=== PATIENT | female | born 1945 | race Hispanic/Latino ===

== ENCOUNTER 2016-07-12 11:29 | Emergency (ER) | payer BC, MEDICARE ==
[2016-07-12 11:36] VITALS: BMI 36.2
[2016-07-12 11:44] VITALS: RESP 18; TEMP 98.7; O2SAT 96
[2016-07-12] MEDS ORDERED: HYDROmorphone 1 mg/ml ISec IVP STA (12:22)
[2016-07-12] MEDS ORDERED: Sodium Chloride 0.9% 1,000 ML IV STA (12:23)
--- NOTE | 2016-07-12 12:57 | ED PDOC ---
Arrival/HPI - General Chief Complaint: Back Pain Time Seen by Provider: 07/12/16 12:08 Historian: Patient - History of Present Illness Narrative History of Present Illness (Text): 07/12/16 12:10 Meli Manley is a 71 year old female, whose past medical history asthma/COPD, AAA repair, methodone dependent (Previous drug use), and kidney stones, who presents to the emergency department complaining of left upper back pain for five days. Patient states that her pain that is radiating toward left shoulder. She notes that her pain is worse with certain movement. Patient has taken Advil multiple times with no relief. Patient does recall lifting heavy things shortly prior to pain onset. Patient denies any chest pain, shortness of breath, nausea , vomiting, urinary symptoms, or any other complaint at this time. PMD: Dr. Raya Time/Duration: < week Symptom Onset: Gradual Symptom Course: Unchanged Severity Level: Mild Activities at Onset: Rest Context: Home Past Medical History - Provider Review Nursing Documentation Reviewed: Yes - Infectious Disease Hx of Infectious Diseases: None - Reproductive Menopause: Yes - Cardiac Hx Pacemaker: No - Pulmonary Hx Respiratory Disorders: Yes (SMOKES CIGARETTES DOWN TO ONE CIG/DAY USED TO SMOKE 1 PPD) Hx Asthma: Yes Hx Bronchitis: Yes - Neurological Hx Paralysis: No - Renal Hx Renal Disorder: Yes Hx Kidney Stones: Yes (MULTIPLE LITHOTRYPSY) - Hematological/Oncological Hx Blood Transfusions: No Hx Blood Transfusion Reaction: No - Musculoskeletal/Rheumatological Hx Musculoskeletal Disorders: Yes (CARPAL TUNNEL WITH BILATERAL SX) - Gastrointestinal Hx Gastrointestinal Disorders: Yes Hx Gastroesophageal Reflux: Yes - Psychiatric Hx Emotional Abuse: No Hx Physical Abuse: No Hx Substance Use: Yes (PAST HEROIN USE 1973;ON METHADONE PROGRAM) - Surgical History Hx Abdominal Aortic Aneurysm Repair: Yes Hx Cholecystectomy: Yes Other/Comment: kidney stones removed - Anesthesia Hx Anesthesia: Yes Hx Anesthesia Reactions: No Hx Malignant Hyperthermia: No - Suicidal Assessment Feels Threatened In Home Enviroment: No Family/Social History - Physician Review Nursing Documentation Reviewed: Yes Family/Social History: No Known Family HX Smoking Status: Current Some Days Smoker Hx Alcohol Use: Yes Frequency of alcohol use: Socially Hx Substance Use: Yes (PAST HEROIN USE 1973;ON METHADONE PROGRAM) Allergies/Home Meds Allergies/Adverse Reactions: Allergies erythromycin base Allergy (Verified 07/12/16 11:37) RASH Penicillins Allergy (Verified 07/12/16 11:37) SHORTNESS OF BREATH Home Medications: Home Meds Medication Instructions Recorded Confirmed Budesonide/Formoterol Fumarate 1 - 2 puff IH BID 11/25/13 07/31/14 [Symbicort 80-4.5 Mcg Inhaler] Esomeprazole Magnesium [Nexium] 40 mg PO DAILY 11/25/13 07/31/14 Hydrochlorothiazide [HCTZ] 25 mg PO DAILY 11/25/13 07/31/14 Methadone 80 mg PO QAM 11/25/13 07/31/14 Potassium Chloride [K-Dur 10] 10 meq PO DAILY 11/25/13 07/31/14 Aspirin [Ecotrin] 81 mg PO DAILY 07/12/16 07/12/16 Cilostazol [Pletal] 100 mg PO BID 07/12/16 07/12/16 Review of Systems - Review of Systems Constitutional: absent: Fevers, Night Sweats Eyes: absent: Vision Changes ENT: absent: Hearing Changes Respiratory: absent: SOB, Cough Cardiovascular: absent: Chest Pain Gastrointestinal: absent: Abdominal Pain Genitourinary Female: absent: Urine Output Changes Musculoskeletal: Back Pain (Left Upper Back pain). absent: Neck Pain Skin: absent: Rash Neurological: absent: Headache, Dizziness Endocrine: absent: Polyuria Hemo/Lymphatic: absent: Easy Bleeding Psychiatric: absent: Depression Physical Exam Vital Signs Reviewed: Yes Vital Signs Temp Pulse Resp BP Pulse Ox 07/12/16 14:21 69 18 133/68 96 07/12/16 12:33 75 18 135/71 96 07/12/16 11:43 98.7 F 79 18 138/77 96 Temperature: Afebrile Blood Pressure: Normal Pulse: Regular Respiratory Rate: Normal Appearance: Positive for: Non-Toxic, Uncomfortable (due to pain) Pain Distress: Moderate Mental Status: Positive for: Alert and Oriented X 3 - Systems Exam Head: Present: Atraumatic, Normocephalic Pupils: Present: PERRL Conjunctiva: Present: Normal Mouth: Present: Moist Mucous Membranes Pharnyx: Present: Normal. No: ERYTHEMA, EXUDATE Neck: Present: Normal Range of Motion Respiratory/Chest: Present: Clear to Auscultation, Good Air Exchange. No: Respiratory Distress, Accessory Muscle Use Cardiovascular: Present: Regular Rate and Rhythm, Normal S1, S2. No: Murmurs Abdomen: Present: Normal Bowel Sounds. No: Tenderness, Distention, Peritoneal Signs Back: Present: Normal Inspection, Other (Tenderness to palpation to trapezius region of left upper back w/reproducible pain.). No: Midline Tenderness Upper Extremity: Present: Normal Inspection, Normal ROM. No: Cyanosis, Edema Lower Extremity: Present: Normal Inspection. No: Edema Neurological: Present: GCS=15, CN II-XII Intact, Speech Normal Skin: Present: Warm, Dry, Normal Color. No: Rashes Psychiatric: Present: Alert, Oriented x 3, Normal Insight, Normal Concentration Medical Decision Making ED Course and Treatment: 07/12/16 12:10 Impression: 71 year old female complaining of left upper back pain for five days. Differential Diagnosis include but are not limited to: musculoskeletal pain vs. kidney stone vs. aortic dissection/AAA leak vs. pneumonia Plan: -- EKG -- Abdomen and pelvis CT w/o Contrast -- Angiography Disection CT -- Urine Culture, Urinalysis -- Labs -- Valium, Dilaudid, Toradol, and IV Fluids -- Reassess and disposition Progress Notes: EKG: Ordered, reviewed, and independently interpreted the EKG. Rate : 82 BPM Rhythm : NSR Interpretation : Short [place] interval at 104. Normal [employer]. Comparison : No new ST-T changes compared with 11/25/13 07/12/16 14:[address]: Creator : Miller Muro MD FINDINGS: LOWER THORAX:Minimal dependent lower lobe atelectasis, right greater than left. Minimal focal atelectasis/pleural thickening in the lingula, unchanged. LIVER:Unremarkable. No gross lesion or ductal dilatation. GALLBLADDER AND BILE DUCTS:Gallbladder not visualized. PANCREAS:Unremarkable. No gross lesion or ductal dilatation. SPLEEN:Unremarkable. ADRENALS:Stable 3.3 cm low-density ovoid left adrenal mass. This measures 1 Hounsfield units consistent with adrenal adenoma. No right adrenal mass. KIDNEYS AND URETERS: 1.8 cm low-density left upper pole renal mass. This measures 6 Hounsfield units and is consistent with cysts. It has enlarged slightly since the prior examination. 1.5 cm mid left renal cortical mass. This measures 9 Hounsfield units and is consistent with a cyst. It has enlarged slightly since the prior examination. There is a nonobstructing 9 mm right upper pole renal calculus. There is a punctate 1-2 mm nonobstructing left upper pole renal calculus. Previously, there was a left upper pole renal calculus. This is no longer identified. There is no hydronephrosis. There is no hydroureter or ureteral calculus. VASCULATURE:There is an infrarenal abdominal aortic aneurysm which has been treated with an aorto bi-iliac stent graft. The aneurysm measures approximately 5.2 cm anterior-posterior and approximately 6.8 cm in length. The aneurysm has increased in A-P dimension since the prior examination, from 5 cm to 6.8 cm. BOWEL:No abnormal bowel loops identified. No bowel obstruction. APPENDIX:Normal appendix not positively identified. No secondary findings to suggest acute appendicitis. PERITONEUM:No ascites. No pneumoperitoneum. Umbilical hernia containing only mesenteric fat. LYMPH NODES:Unremarkable. No enlarged lymph nodes. BLADDER:Unremarkable. REPRODUCTIVE:Unremarkable uterus. BONES:No acute fracture. Grade 1 anterolisthesis at L5-S1. Bilateral L5 spondylolysis. OTHER FINDINGS:None. IMPRESSION: Interval enlargement of infrarenal abdominal aortic aneurysm with aorto bi- iliac stent graft. No evidence of ureteral calculus. Nonobstructing right upper pole renal calculus. 1-2 mm nonobstructing left upper pole renal calculus. Additional minor findings as above. Two left renal cysts, slightly increased in size from prior CT examination. Recommend nonemergent correlation with renal ultrasound examination because of this increase in size. ADDENDUM: Addendum dictation: Please note that there was an error dictated under the section titled : vasculature". The corrected dictation is as follows: VASCULATURE: There is an infrarenal abdominal aortic aneurysm which has been treated with an aorto bi-iliac stent graft. The aneurysm measures approximately 5.2 cm anterior approximately 6.8 cm in length. The aneurysm has increased in A-P dimension, since the prior examination, from 5 cm to 5.2 cm. [ Addendum Report Added by Miller Muro MD at 07/12/2016 14:55:14 ] 07/12/16 15:[address]: Creator : Miller Muro MD FINDINGS: CT ANGIOGRAPHY OF THE CHEST WITH & WITHOUT CONTRAST: AORTA (CHEST AND ABDOMEN): There is no evidence of thoracic or abdominal aortic dissection. There is aneurysmal dilatation of the infrarenal abdominal aorta with an aortobiiliac stent graft. The maximum a-PA diameter of the aneurysm is approximately 5.2 cm. Previously, this measured approximately 5.0 cm. There is no evidence of endoleak. 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 There is no definite stenosis at the origin of the superior mesenteric artery. . The pelvic arteries are unremarkable. LUNGS: Centrilobular pulmonary emphysema. Dependent ground-glass opacity at right lung base, likely dependent atelectasis. No pulmonary infiltrate. MEDIASTINUM: Unremarkable. Normal caliber aorta and pulmonary arterial trunk. No aortic dissection. Normal size heart. LYMPH NODES: Unremarkable. PLEURA: Unremarkable. No pneumothorax. No pleural fluid. BONES: Unremarkable OTHER FINDINGS: None. CT ANGIOGRAPHY OF THE ABDOMEN AND PELVIS WITH CONTRAST: LIVER: Unremarkable. No gross lesion or ductal dilatation. GALLBLADDER AND BILE DUCTS: Gallbladder not visualized. Question is raised as to prior cholecystectomy. No surgical clips identified in gallbladder fossa. PANCREAS: Unremarkable. No gross lesion or ductal dilatation. SPLEEN: Unremarkable. ADRENALS: 3.1 cm ovoid low-attenuation left adrenal mass. Consistent with adrenal adenoma. Please see report of earlier noncontrast abdominal CT examination of the same date. KIDNEYS AND URETERS: 1.9 cm left upper pole renal cortical cyst. 1.5 cm mid right renal cortical cyst. Please note that no was made on earlier noncontrast examination of some interval increase in size of these cysts. As measured from postcontrast examination, there has been no interval change in the size of these cysts from prior examination. 9 mm nonobstructing right upper pole renal calculus. No hydronephrosis. VASCULATURE: See above STOMACH AND BOWEL: Unremarkable. No obstruction. No gross mural thickening. APPENDIX: Normal appendix not positively identified. PERITONEUM: No ascites. Small umbilical hernia containing only mesenteric fat. LYMPH NODES: Unremarkable. No enlarged lymph nodes. BLADDER: Unremarkable. REPRODUCTIVE: Normal uterus. BONES: No acute fracture. Grade 1 anterolisthesis at L5-S1 with bilateral spondylolysis of L5. OTHER FINDINGS: None. IMPRESSION: Small increase in diameter of a previously documented infrarenal abdominal aortic aneurysm, status post aortobiiliac stent graft. No evidence of endoleak. No evidence of thoracic or abdominal aortic dissection. 9 mm nonobstructing right upper pole renal calculus. Additional minor findings as above. 07/12/16 15:44 Patient with noted history. Imaging with showing AAA at 5.2 cm with aorto-bi- iliac stent in place with no leak. Instructed to follow up with Dr. Miller Gilmore , who did the initial procedure 3 years ago. Also noted are renal stones with which she will follow up Dr. Stevenson. She was also told about the renal cysts and adrenal adenoma on imaging. She will follow up with Dr. Raya for that. Patient feels significant improvement of pain after meds here in the emergency depart Patient's TECHNOLOGY SUPPORT ANALYST was checked and has not received any controlled substance scripts in system - will prescribe percocet, naprosyn, and muscle relaxant. 07/12/16 15:55 Case also discussed with Dr. Gilmore, who will follow up the patient outpatient. Case also dicussed with Dr. Raya; will give fewer tabs of percocet, given drug history. - Lab Interpretations Lab Results: 07/12/16 13:00 07/12/16 13:20 Lab Results 07/12/16 13:20: Sodium 137, Potassium 3.9, Chloride 101, Carbon Dioxide 30, Anion Gap 10, BUN 11, Creatinine 0.6, Est GFR ( Amer) > 60, Est GFR (Non- Af Amer) > 60, Random Glucose 89, Calcium 8.8, Magnesium 1.8, Total Bilirubin 0.3, AST 20, ALT 31, Alkaline Phosphatase 74, Lactate Dehydrogenase 432, Total Creatine Kinase 87, Troponin I < 0.01, Total Protein 6.7, Albumin 3.5, Globulin 3.1, Albumin/Globulin Ratio 1.1, Lipase 40 07/12/16 13:00: PT 10.2, INR 0.94, APTT 26.6 07/12/16 13:00: Urine Color Yellow, Urine Appearance Clear, Urine pH 6.0, Ur Specific [place] 1.010, Urine Protein Negative, Urine Glucose (UA) Negative, Urine Ketones Trace H, Urine Blood Negative, Urine Nitrate Negative, Urine Bilirubin Negative, Urine Urobilinogen 0.2, Ur Leukocyte Esterase Negative 07/12/16 13:00: WBC 8.5, RBC 5.17, Hgb 14.3, Hct 43.8, MCV 84.7, MCH 27.7, MCHC 32.6, RDW 17.0 H, Plt Count 314, MPV 9.2, Gran % 60.9, Lymph % (Auto) 26.4, Mathews % (Auto) 9.9 H, Eos % (Auto) 2.3, Baso % (Auto) 0.5, Gran # 5.19, Lymph # 2.3, Mathews # 0.8 H, Eos # 0.2, Baso # 0.04 I have reviewed the lab results: Yes - RAD Interpretation Radiology Orders: 07/12/16 12:20 ABD & PELVIS W/O PO OR IV CONT [CT] Stat ANGIOGRAPHY DISECTION PROTOCOL [CT] Stat - Medication Orders Current Medication Orders: Discontinued Medications Diazepam (Valium) 2.5 mg PO ONCE STA Stop: 07/12/16 12:22 Last Admin: 07/12/16 13:06 Dose: 2.5 mg Hydromorphone HCl (Dilaudid) 1 mg IVP STAT STA Stop: 07/12/16 12:23 Last Admin: 07/12/16 13:05 Dose: 1 mg Sodium Chloride (Sodium Chloride 0.9%) 1,000 mls @ 999 mls/hr IV .Q1H1M STA Stop: 07/12/16 13:23 Last Admin: 07/12/16 13:06 Dose: 999 mls/hr Iohexol (Omnipaque 350 150 Ml) Confirm Administered Dose 150 ml .ROUTE .STK-MED ONE Stop: 07/12/16 13:53 Ketorolac Tromethamine (Toradol) 30 mg IVP STAT STA Stop: 07/12/16 12:21 Last Admin: 07/12/16 13:05 Dose: 30 mg - Scribe Statement The provider has reviewed the documentation as recorded by the Temitope Maciel Provider Scribe Attestation: All medical record entries made by the Scriblaury were at my direction and personally dictated by me. I have reviewed the chart and agree that the record accurately reflects my personal performance of the history, physical exam, medical decision making, and the department course for this patient. I have also personally directed, reviewed, and agree with the discharge instructions and disposition. Disposition/Present on Arrival - Present on Arrival Any Indicators Present on Arrival: No History of DVT/PE: No History of Uncontrolled Diabetes: No Urinary Catheter: No History of Decub. Ulcer: No History Surgical Site Infection Following: None - Disposition Have Diagnosis and Disposition been Completed?: Yes Diagnosis: Left-sided back pain, Adrenal adenoma, AAA (abdominal aortic aneurysm), Kidney stone, Kidney cysts Disposition: HOME/ ROUTINE Disposition Time: 15:50 Patient Plan: Discharge Condition: GOOD Discharge Instructions (ExitCare): Back Pain (ED), Kidney Stones (ED), Kidney Cyst (ED) Additional Instructions: Take the medications as prescribed. Do not use additional nsaids (advil, motrin ) while takign the naproxen. No heavy lifting. Make sure you follow up with Dr. Miller Gilmore and Dr. Stevenson and Dr. Raya. Return to the emergency department if any new concerning symptoms. Prescriptions: Baclofen [Lioresal] 1 cap PO TID PRN #20 tab PRN Reason: Pain, Moderate (4-7) Naproxen [Naprosyn] 500 mg PO BID PRN #30 tab PRN Reason: Pain oxyCODONE/Acetaminophen [Percocet 5/325 mg Tab] 1 tab PO Q6H PRN #6 tab PRN Reason: Pain, Severe (8-10) Referrals: Catrachito Raya MD [Primary Care Provider] - Follow up with primary Miller Gilmore MD [Staff Provider] - Follow up with primary Pineda Stevenson MD [Staff Provider] - Follow up with primary
[2016-07-12 13:09] LABS: ADD MANUAL DIFF? NO
[2016-07-12 13:11] LABS: BASO # 0.04 K/mm3 (0.0-2.0); BASO % 0.5 % (0.0-3.0); EOS # 0.2 (0.0-0.7); EOS % 2.3 % (1.5-5.0); GRAN # 5.19 (1.4-6.5); GRAN % 60.9 % (50.0-68.0); HEMATOCRIT 43.8 % (36.0-48.0); LYMPH # 2.3 (1.2-3.4); LYMPH % 26.4 % (22.0-35.0); MEAN CELL VOLUME 84.7 fL (80.0-105.0); MEAN CORPUSCULAR HEMOGLOBIN 27.7 pg (25.0-35.0); MEAN CORPUSCULAR HGB CONC 32.6 g/dl (31.0-37.0); MEAN PLATELET VOLUME 9.2 fl (7.0-11.0); MONO # 0.8 (0.1-0.6); MONO % 9.9 % (1.0-6.0); PLATELET COUNT 314 10^3/uL (120.0-450.0); URINE APPEARANCE CLEAR (CLEAR); URINE BILIRUBIN NEGATIVE (NEGATIVE); URINE BLOOD NEGATIVE (NEGATIVE); URINE COLOR YELLOW (YELLOW); URINE GLUCOSE (UA) NEGATIVE (NEGATIVE); URINE KETONE TRACE mg/dL (NEGATIVE); URINE LEUKOCYTE ESTERASE NEGATIVE Leu/uL (NEGATIVE); URINE PROTEIN NEGATIVE mg/dL (<30 mg/dL); URINE UROBILINOGEN 0.2 E.U./dL (<1 E.U./dL); WHITE BLOOD COUNT 8.5 10^3/ul (4.5-11.0)
[2016-07-12 13:28] LABS: INR 0.94 (0.93-1.08); PARTIAL THROMBOPLASTIN TIME 26.6 Seconds (23.7-30.8)
[2016-07-12 13:44] LABS: ALB/GLOB RATIO 1.1 (1.1-1.8); ALKALINE PHOSPHATASE 74 U/L (38-133); ALT/SGPT 31 U/L (7-56); AST/SGOT 20 U/L (15-39); BILIRUBIN,TOTAL 0.3 mg/dL (0.2-1.3); BLOOD UREA NITROGEN 11 mg/dL (7-21); CALCIUM 8.8 mg/dL (8.4-10.5); CARBON DIOXIDE 30 mmol/L (21-33); CHLORIDE 101 mmol/L (95-110); GFR AFRICAN-AMERICAN > 60; GLUCOSE,RANDOM 89 mg/dL (70-110); LIPASE 40 U/L (23-300); MAGNESIUM 1.8 mg/dL (1.7-2.2); POTASSIUM 3.9 mmol/L (3.6-5.0); SODIUM 137 mmol/L (132-148); TOTAL PROTEIN 6.7 g/dL (5.8-8.3)
[2016-07-12 14:18] LABS: TROPONIN I < 0.01 ng/mL
[2016-07-12 14:21] VITALS: BP 133/68; PULSE 69
--- NOTE | 2016-07-12 14:42 | CT ---
PROCEDURE: CT Abdomen and Pelvis without intravenous contrast HISTORY: L side back pain - r/o renal colic COMPARISON: 07/18/2014 TECHNIQUE: Without contrast.. Contrast Dose: 0 Radiation dose: Total exam DLP = 1153.55 mGy-cm. This CT exam was performed using one or more of the following dose reduction techniques: Automated exposure control, adjustment of the mA and/or kV according to patient size, and/or use of iterative reconstruction technique. FINDINGS: LOWER THORAX: Minimal dependent lower lobe atelectasis, right greater than left. Minimal focal atelectasis/pleural thickening in the lingula, unchanged. LIVER: Unremarkable. No gross lesion or ductal dilatation. GALLBLADDER AND BILE DUCTS: Gallbladder not visualized. PANCREAS: Unremarkable. No gross lesion or ductal dilatation. SPLEEN: Unremarkable. ADRENALS: Stable 3.3 cm low-density ovoid left adrenal mass. This measures 1 Hounsfield units consistent with adrenal adenoma. No right adrenal mass. KIDNEYS AND URETERS: 1.8 cm low-density left upper pole renal mass. This measures 6 Hounsfield units and is consistent with cysts. It has enlarged slightly since the prior examination. 1.5 cm mid left renal cortical mass. This measures 9 Hounsfield units and is consistent with a cyst. It has enlarged slightly since the prior examination. There is a nonobstructing 9 mm right upper pole renal calculus. There is a punctate 1-2 mm nonobstructing left upper pole renal calculus. Previously, there was a left upper pole renal calculus. This is no longer identified. There is no hydronephrosis. There is no hydroureter or ureteral calculus. VASCULATURE: There is an infrarenal abdominal aortic aneurysm which has been treated with an aorto bi-iliac stent graft. The aneurysm measures approximately 5.2 cm anterior-posterior and approximately 6.8 cm in length. The aneurysm has increased in A-P dimension since the prior examination, from 5 cm to 6.8 cm. BOWEL: No abnormal bowel loops identified. No bowel obstruction. APPENDIX: Normal appendix not positively identified. No secondary findings to suggest acute appendicitis. PERITONEUM: No ascites. No pneumoperitoneum. Umbilical hernia containing only mesenteric fat. LYMPH NODES: Unremarkable. No enlarged lymph nodes. BLADDER: Unremarkable. REPRODUCTIVE: Unremarkable uterus. BONES: No acute fracture. Grade 1 anterolisthesis at L5-S1. Bilateral L5 spondylolysis. OTHER FINDINGS: None. IMPRESSION: Interval enlargement of infrarenal abdominal aortic aneurysm with aorto bi-iliac stent graft. No evidence of ureteral calculus. Nonobstructing right upper pole renal calculus. 1-2 mm nonobstructing left upper pole renal calculus. Additional minor findings as above. Two left renal cysts, slightly increased in size from prior CT examination. Recommend nonemergent correlation with renal ultrasound examination because of this increase in size.
--- NOTE | 2016-07-12 15:11 | CT ---
PROCEDURE: CT Angiography Chest, Abdomen and Pelvis with and without intravenous contrast HISTORY: L side back pain - r/o dissection COMPARISON: None. TECHNIQUE: Contiguous axial images of the chest, abdomen and pelvis were obtained in the phase of aortic enhancement. A noncontrast enhanced CT of the chest was also obtained to evaluate for possible intramural thrombus. Coronal and sagittal reformats were generated. IV dose administered: 150 mL Omnipaque 350 Radiation dose: Total exam DLP = 1523.38 mGy-cm. This CT exam was performed using one or more of the following dose reduction techniques: Automated exposure control, adjustment of the mA and/or kV according to patient size, and/or use of iterative reconstruction technique. FINDINGS: CT ANGIOGRAPHY OF THE CHEST WITH & WITHOUT CONTRAST: AORTA (CHEST AND ABDOMEN): There is no evidence of thoracic or abdominal aortic dissection. There is aneurysmal dilatation of the infrarenal abdominal aorta with an aortobiiliac stent graft. The maximum a-PA diameter of the aneurysm is approximately 5.2 cm. Previously, this measured approximately 5.0 cm. There is no evidence of endoleak. 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 There is no definite stenosis at the origin of the superior mesenteric artery. . The pelvic arteries are unremarkable. LUNGS: Centrilobular pulmonary emphysema. Dependent ground-glass opacity at right lung base, likely dependent atelectasis. No pulmonary infiltrate. MEDIASTINUM: Unremarkable. Normal caliber aorta and pulmonary arterial trunk. No aortic dissection. Normal size heart. LYMPH NODES: Unremarkable. PLEURA: Unremarkable. No pneumothorax. No pleural fluid. BONES: Unremarkable OTHER FINDINGS: None. CT ANGIOGRAPHY OF THE ABDOMEN AND PELVIS WITH CONTRAST: LIVER: Unremarkable. No gross lesion or ductal dilatation. GALLBLADDER AND BILE DUCTS: Gallbladder not visualized. Question is raised as to prior cholecystectomy. No surgical clips identified in gallbladder fossa. PANCREAS: Unremarkable. No gross lesion or ductal dilatation. SPLEEN: Unremarkable. ADRENALS: 3.1 cm ovoid low-attenuation left adrenal mass. Consistent with adrenal adenoma. Please see report of earlier noncontrast abdominal CT examination of the same date. KIDNEYS AND URETERS: 1.9 cm left upper pole renal cortical cyst. 1.5 cm mid right renal cortical cyst. Please note that no was made on earlier noncontrast examination of some interval increase in size of these cysts. As measured from postcontrast examination, there has been no interval change in the size of these cysts from prior examination. 9 mm nonobstructing right upper pole renal calculus. No hydronephrosis. VASCULATURE: See above STOMACH AND BOWEL: Unremarkable. No obstruction. No gross mural thickening. APPENDIX: Normal appendix not positively identified. PERITONEUM: No ascites. Small umbilical hernia containing only mesenteric fat. LYMPH NODES: Unremarkable. No enlarged lymph nodes. BLADDER: Unremarkable. REPRODUCTIVE: Normal uterus. BONES: No acute fracture. Grade 1 anterolisthesis at L5-S1 with bilateral spondylolysis of L5. OTHER FINDINGS: None. IMPRESSION: Small increase in diameter of a previously documented infrarenal abdominal aortic aneurysm, status post aortobiiliac stent graft. No evidence of endoleak. No evidence of thoracic or abdominal aortic dissection. 9 mm nonobstructing right upper pole renal calculus. Additional minor findings as above.
--- NOTE | 2016-07-12 21:37 | CARD ---
APPROVED REPORT EKG Measurement Heart [id number] [id number] <Conclusion> Sinus rhythm with short W[place] with premature ventricular complexes or fusion complexes Possible Left atrial enlargement Nonspecific ST abnormality Abnormal ECG
== END 2016-07-12 16:00 | disposition home or self-care (01) ==
LOC: ED 11:29
DX: I71.4 Abdominal aortic aneurysm, without rupture (principal); D35.00 Benign neoplasm of unspecified adrenal gland; N20.0 Calculus of kidney; N28.1 Cyst of kidney, acquired; M54.9 Dorsalgia, unspecified
CPT/HCPCS: 71275; 74175; 74176; 80053; 81003; 82550; 83615; 83690; 83735; 84484; 85025; 85610; 85730; 87086; 93005; 96374; 96375; 99284; J1170; J1885; J7040; Q9967